=== PATIENT | male | born 1975 | race Two or more races ===

== ENCOUNTER 2016-06-02 19:44 | Emergency (ER) | payer SELFPAY ==
[2016-06-02 20:12] VITALS: BP 173/116
[2016-06-02] MEDS ORDERED: AMOX500C PO (21:00)
--- NOTE | 2016-06-02 21:01 | PHYS DOC ---
Past Medical History Past Medical History: No Pertinent History Past Surgical History: No Surgical History Alcohol Use: Occasionally Drug Use: None Adult General Chief Complaint Chief Complaint: SORE THROAT HPI HPI Patient is a 41 year old presents emergency Department with a 2 week history of a sore throat. Patient is Chinese-speaking only family member at the bedside is interpreting. They state that he's denied any fevers, he has had chills with occasional cough. Denies any ear pain or discomfort. Patient has not taken anything for pain and discomfort. Review of Systems Review of Systems Constitutional: Denies fever or chills [] Eyes: Denies change in visual acuity, redness, or eye pain [] HENT: Denies nasal congestion C/o sore throat [] Respiratory: cough denies shortness of breath [] Cardiovascular: No additional information not addressed in HPI [] GI: Denies abdominal pain, nausea, vomiting, bloody stools or diarrhea [] : Denies dysuria or hematuria [] Musculoskeletal: Denies back pain or joint pain [] Integument: Denies rash or skin lesions [] Neurologic: Denies headache, focal weakness or sensory changes [] Allergies Allergies Allergies Coded Allergies Type Severity Reaction Last Updated Verified No Known Drug Allergies 01/15/15 No Physical Exam Physical Exam Constitutional: Well developed, well nourished, no acute distress, non-toxic appearance. [] HENT: Normocephalic, atraumatic, bilateral external ears normal, oropharynx moist, no oral exudates, nose normal. Bilateral tympanic membranes appear to be normal. Throat with erythematous no exudate noted. No adenopathy noted. Deviation noted Eyes: PERRLA, EOMI, conjunctiva normal, no discharge. [] Neck: Normal range of motion, no tenderness, supple, no stridor. [] Cardiovascular:Heart rate regular rhythm, no murmur [] Lungs & Thorax: Bilateral breath sounds clear to auscultation [] Skin: Warm, dry, no erythema, no rash. [] Back: No tenderness Extremities: No tenderness, no cyanosis, no clubbing, ROM intact, no edema. [] Neurologic: Alert and oriented X 3, normal motor function, normal sensory function, no focal deficits noted. [] Psychologic: Affect normal, judgement normal, mood normal. [] Current Patient Data Vital Signs Vital Signs Date Time Temp Pulse Resp B/P Pulse Ox O2 Delivery O2 Flow Rate FiO2 06/02/16 20:12 98.4 84 16 97 Room Air 98.4 EKG EKG [] Radiology/Procedures Radiology/Procedures [] Course & Med Decision Making Course & Med Decision Making Pertinent Labs and Imaging studies reviewed. (See chart for details) Rapid strep was positive. Patient will be placed on amoxicillin. Recommended plenty of fluids Tylenol or ibuprofen for fever chills or generalized body aches and discomfort. Patient be discharged home in stable condition signs and symptoms to return back to emergency department as been provided. [] Dragon Disclaimer Dragon Disclaimer This electronic medical record was generated, in whole or in part, using a voice recognition dictation system. Departure Departure Impression: Primary Impression: Strep throat Disposition: HOME, SELF-CARE Condition: STABLE Referrals: NO PCP (PCP) Patient Instructions: Strep Throat, [id number] Additional Instructions: Activity as tolerated. Medications prescribed. Change her toothbrush within the next 24 hours. Drink any fluids. Tylenol or ibuprofen for pain and discomfort. Follow-up through primary care physician in the next 3-5 days. Return back to emergency prior signs symptoms of become worse. Scripts Amoxicillin 500 Mg Capsule1 Cap PO BID #[id number] CAP Prov:JOE PEREA APRN 06/02/16 JOE PEREA APRN Jun 02, 2016 21:01
[2016-06-03 07:13] LABS: NEGATIVE OBC STREP NEG; POSITIVE OBC STREP POS
== END 2016-06-02 21:06 | disposition home or self-care (01) ==
LOC: ER 19:44
DX: J02.0 Streptococcal pharyngitis (principal)
CPT/HCPCS: 87880; 99283